=== PATIENT | female | born 1980 | race Caucasian/White ===

== ENCOUNTER → 2017-11-25 | Outpatient (CLI) | payer OTHER ==
[~2017-11-25] MED LIST: IOPAMIDOL (ISOVUE 370) 100 ML BTL IV ONE
== END ==
LOC: FIMAGING 13:02
PROVIDERS: ATTEND Obstetrics & Gynecology
PROC: 0UJD7ZZ Inspection of Uterus and Cervix, Via Natural or Artificial Opening (ICD-10-PCS; principal; 2017-11-25)
DX: N97.9 Female infertility, unspecified (principal)
CPT/HCPCS: Q9967

== ENCOUNTER → 2018-06-06 | Outpatient (CLI) | payer OTHER | LOC: FIMAGING 14:10 | PROVIDERS: ATTEND Obstetrics & Gynecology | DX: O09.522 Supervision of elderly multigravida, second trimester (principal); O99.280 Endocrine, nutritional and metabolic diseases complicating pregnancy, unspecified trimester; Z3A.19 19 weeks gestation of pregnancy ==

== ENCOUNTER 2018-10-25 21:19 | Inpatient (IN) | payer OTHER ==
[2018-10-25] MEDS ORDERED: LR 1,000 ML IV PRN (21:52)
[2018-10-25] MEDS ORDERED: MISOPROSTOL 200 MCG TAB PR PRN (21:52)
[2018-10-25] MEDS ORDERED: IBUPROFEN 600 MG TAB PO PRN (21:52)
[2018-10-25] MEDS ORDERED: EPSOM SALT 454 GM TP PRN (21:52)
[2018-10-25] MEDS ORDERED: OXYTOCIN/RINGERS LACTATE 1,000 ML IV PRN (21:52)
[2018-10-25] MEDS ORDERED: LIDOCAINE 1% 300 MG/30 ML SDV SC PRN (21:52)
[2018-10-25] MEDS ORDERED: OLIVE OIL 118 ML BTL MISC PRN (21:52)
[2018-10-25] MEDS ORDERED: CALCIUM CARBONATE 500 MG CHEWABLE TAB PO PRN (22:07)
[2018-10-25] MEDS ORDERED: ZOLPIDEM TARTRATE 5 MG TAB PO PRN (22:08)
[2018-10-25] MEDS ORDERED: LR 500 ML IV PRN (22:08)
[2018-10-25] MEDS ORDERED: ACETAMINOPHEN 500 MG TAB PO PRN (22:08)
[2018-10-25] MEDS ORDERED: OXYTOCIN/RINGERS LACTATE 500 ML IV SCH (22:30)
[2018-10-25] MEDS ORDERED: LIDOCAINE 1% 300 MG/30 ML SDV ONE (22:54)
[2018-10-25] MEDS ORDERED: OLIVE OIL 118 ML BTL ONE (22:54)
[2018-10-25] MEDS ORDERED: TERBUTALINE SULFATE 1 MG/ML VIAL ONE (22:55)
[2018-10-25] MEDS ORDERED: OXYTOCIN 10 UNIT/ML VIAL ONE (22:55)
[2018-10-25] MEDS ORDERED: AMMONIA AROMATIC 1 EACH AMP IH ONE (22:55)
[2018-10-25] MEDS ORDERED: MISOPROSTOL 200 MCG TAB ONE (22:55)
[2018-10-25] MEDS: MISOPROSTOL 25 MCG CAP PO SCH (23:00)
[2018-10-25 23:01] LABS: PLATELET COUNT 233 10^3/uL (150-400)
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
--- NOTE | 2018-10-26 03:44 | OBPROG ---
Labor Progress Note Assessment/Plan: Assessment: 37 y/o @ 40 1/7 weeks with PROM Plan: Called into hospital by RN re: prolonged decels Pt was given first dose buccal Cytotec around 2330; no ctx's noted on toco but prolonged decel noted at 0207 x 7 min duration with tsering down to 60 bpm with slow return to baseline. resuscitation was performed-pt on L side, IVFs wide open and oxygen applied No SVE done at this time There now appears to be ctx's every 2-3 min that were traced starting around 0220 Discussed holding off on second dose of Cytotec-to be given at 0240 Will cont to monitor strip closely, strip now reassuring with accels and mod variability If another prolonged decel noted, will likely proceed to OR for PCS since remote from delivery 10/26/18 03:37 Subjective/Intrapartum Course: 10/26/18 03:44 Pt sleeping at this time. Objective: 10/25/18 22:45 Patient ABO/Rh B POSITIVE 10/25/18 22:45 - Contraction Pattern Assessment Current Contraction Pattern: Irregular (q2-5 min) - FHR Assessment Thakkar FHR (bpm): 120 FHR Pattern Variability: Moderate FHR Category: 2 (intermittent mild variable decels noted; prolonged decel noted x 7 min with tsering to 60 bpm with slow return to baseline) - AP Antepartum Course: 10/26/18 03:46 AMA with negative NIPT; Hypothyroidism-stable on meds; HSV 1 with oral lesions only; varicella nonimmune; left complex adnexal mass likely dermoid that became smaller in third trimester, pt with no issues. Oxytocin Orders Assessment - Pre-Induction/Augmentation Assessment Gestational Age: 40 week(s) and 0 day(s) ICD10 Worksheet Patient Problems: Problems Problem Status Onset Premature rupture of membranes Acute - ICD10 Problem Qualifiers (1) Premature rupture of membranes
[2018-10-26] MEDS: LEVOTHYROXINE 50 MCG TAB PO SCH (09:39)
--- NOTE | 2018-10-26 12:14 | OBPROG ---
Labor Progress Note Assessment/Plan: Assessment: IUP at 40w1d with prolonged ROM x29 hrs GBS - afebrile, clear fluid Plan: IUPC placed for amnioinfusion - will then start pitocin, PEDRITO prn 10/26/18 12:10 Subjective/Intrapartum Course: 10/26/18 03:44 Pt sleeping at this time. 10/26/18 12:12 Pt doing well. off/on resting. minimal discomfort - aware of ctxns. scant vag bld this am o/w clear flluid. GFM. ready for stimulation.. Cx /2 IUPC placed without probs - to begin amnioinfusion then pit Objective: 10/25/18 22:45 Patient ABO/Rh B POSITIVE 10/25/18 22:45 - SVE Dilation (cm): 1 Effacement (%): 90 Station: -2 Membranes: SROM Amniotic Fluid Color: Clear - Contraction Pattern Assessment Current Contraction Pattern: Regular (variable ctxns q 2-4 min, some coupling, mild palpably), Irregular (q2-5 min) - FHR Assessment Thakkar FHR (bpm): 120 FHR Pattern Variability: Moderate FHR Category: 1 (currently cat I, has had occas variable decels - not always c/ w ctxns, currently with IUPC and MVUs 90-108) - Procedures Non-surgical Procedures: IUPC - AP Antepartum Course: 10/26/18 03:46 AMA with negative NIPT; Hypothyroidism-stable on meds; HSV 1 with oral lesions only; varicella nonimmune; left complex adnexal mass likely dermoid that became smaller in third trimester, pt with no issues. Oxytocin Orders Assessment - Pre-Induction/Augmentation Assessment Gestational Age: 40 week(s) and 0 day(s) ICD10 Worksheet Patient Problems: Problems Problem Status Onset Premature rupture of membranes Acute
--- NOTE | 2018-10-26 15:49 | OBPROG ---
Labor Progress Note Assessment/Plan: Assessment: IUP at 40w1d with prolonged ROM x29 hrs GBS - afebrile, clear fluid on pit with good intensity ctxns Plan: IUPC placed for amnioinfusion - on pitocin, PEDRITO prn 10/26/18 12:10 10/26/18 15:46 Subjective/Intrapartum Course: 10/26/18 03:44 Pt sleeping at this time. 10/26/18 12:12 Pt doing well. off/on resting. minimal discomfort - aware of ctxns. scant vag bld this am o/w clear flluid. GFM. ready for stimulation.. Cx /-2 IUPC placed without probs - to begin amnioinfusion then pit 10/26/18 15:47 Pt managing ctxn pain well. good strength ctxns by IUPC on 4 mu/min pit. some variables on 6 mu/min Objective: 10/25/18 22:45 Patient ABO/Rh B POSITIVE 10/25/18 22:45 - SVE Membranes: SROM Amniotic Fluid Color: Clear - Contraction Pattern Assessment Current Contraction Pattern: Regular (q 1-2 min on 4 mu/min pit, good MVUs), Irregular (q2-5 min) - FHR Assessment Thakkar FHR (bpm): 130 FHR Pattern Variability: Moderate FHR Category: 1 - Procedures Non-surgical Procedures: IUPC - AP Antepartum Course: 10/26/18 03:46 AMA with negative NIPT; Hypothyroidism-stable on meds; HSV 1 with oral lesions only; varicella nonimmune; left complex adnexal mass likely dermoid that became smaller in third trimester, pt with no issues. Oxytocin Orders Assessment - Pre-Induction/Augmentation Assessment Gestational Age: 40 week(s) and 0 day(s) ICD10 Worksheet Patient Problems: Problems Problem Status Onset Premature rupture of membranes Acute
[2018-10-26] MEDS ORDERED: fentaNYL 2MCG/ML/BUP 0.1% RTU 100 ML BAG EP ONE (19:52)
--- NOTE | 2018-10-26 19:56 | OBPROG ---
Labor Progress Note Assessment/Plan: Assessment: IUP at 40w1d with prolonged ROM x36 hrs GBS - afebrile, clear fluid on pit with good intensity ctxns - no cervical change hx of cryo Plan: IUPC placed for amnioinfusion - on pitocin, pt is requesting PEDRITO 10/26/18 12:10 10/26/18 15:46 10/26/18 19:45 Subjective/Intrapartum Course: 10/26/18 03:44 Pt sleeping at this time. 10/26/18 12:12 Pt doing well. off/on resting. minimal discomfort - aware of ctxns. scant vag bld this am o/w clear flluid. GFM. ready for stimulation.. Cx IUPC placed without probs - to begin amnioinfusion then pit 10/26/18 15:47 Pt managing ctxn pain well. good strength ctxns by IUPC on 4 mu/min pit. some variables on 6 mu/min 10/26/18 19:46 Pt doing ok - but sister reports she's hitting a wall - ctxns stronger per pt and she's getting fatigued. Pt requests PEDRITO. Last exam per RN was unchanged at . Pt had cryo in past Objective: 10/25/18 22:45 Patient ABO/Rh B POSITIVE 10/25/18 22:45 - SVE Membranes: SROM Amniotic Fluid Color: Clear - Contraction Pattern Assessment Current Contraction Pattern: Regular (q 1-2 min on 4 mu/min pit, good MVUs), Irregular (variable pattern q 2-4 min, adeq pattern with MVUs - pit betw 3-6 mu /min, some coupling) - FHR Assessment Thakkar FHR (bpm): 130 FHR Pattern Variability: Moderate FHR Category: 1 - Procedures Non-surgical Procedures: IUPC - AP Antepartum Course: 10/26/18 03:46 AMA with negative NIPT; Hypothyroidism-stable on meds; HSV 1 with oral lesions only; varicella nonimmune; left complex adnexal mass likely dermoid that became smaller in third trimester, pt with no issues. Oxytocin Orders Assessment - Pre-Induction/Augmentation Assessment Gestational Age: 40 week(s) and 0 day(s) ICD10 Worksheet Patient Problems: Problems Problem Status Onset Premature rupture of membranes Acute
[2018-10-26] MEDS ORDERED: ONDANSETRON 4 MG/2 ML VIAL IVP PRN (20:23)
[2018-10-26] MEDS ORDERED: NALOXONE HCL 0.4 MG/ML INJ IVP PRN (20:23)
--- NOTE | 2018-10-26 20:26 | PREANESOB ---
Obstetric Pre-Anesthesia Info - General Info Proposed Procedure: induction of labor following SROM NPO Start Time: 21:00 : 1 Para: 0 RONALDO: 10/25/18 Gestational Age: 40 week(s) and 0 day(s) - Info Status: Full Term Monitors: External FHR Pattern: Reassuring - Labor Status Cervical Dilation per last OB SVE: 1 Station per last OB SVE: -2 Amniotic Fluid Color: Clear Pitocin: In Use PIH: No Magnesium Sulfate in Use: No Labor Epidural: Proposed Anesthesia ROS: hypothyroidism no complications during no h/o bleeding disorder/blood thinner usage/low platelets Allergies/Adverse Reactions: Allergy/AdvReac Type Severity Reaction Status Date / Time No Known Allergies Allergy Unverified 10/25/18 21:42 Home Medications: Medication Instructions Recorded Levothyroxine [Synthroid 75 mcg 75 mcg PO DAILY06 10/25/18 (*)] Vit27&Calcium/Iron/FA 1 each PO DAILY 10/25/18 [ Rx 1 Tablet (RX)] Valacyclovir HCl [Valtrex] 1,000 mg PO TID 10/25/18 Visit Medications: Generic Name Dose Route Start Last Admin Trade Name Freq PRN Reason Stop Dose Admin Acetaminophen 1,000 mg 10/25/18 22:08 Tylenol PO 04/23/19 22:07 Q6HRS PRN Pain, Mild/Fever, Can Take PO Calcium Carbonate 500 mg 10/25/18 22:07 Tums PO 04/23/19 22:06 TID PRN Indigestion Lactated Ringer's 1,000 mls @ 0 mls/hr 10/25/18 21:52 Lr IV 10/26/18 21:51 PRN PRN SEE PROTOCOL CONDITIONS Protocol Per Protocol Oxytocin/Lactated Ringer's 1,000 mls @ 125 mls/hr 10/25/18 21:52 Pitocin 20 Units/Lr (Premix) IV PRN PRN Post bleeding Lactated Ringer's 500 mls @ 500 mls/hr 10/25/18 22:08 Lr IV 10/26/18 22:09 PRN PRN Maternal Hypotension Oxytocin/Lactated Ringer's 500 mls @ 0 mls/hr 10/25/18 22:30 Pitocin 30 Units/Lr (Premix) IV 04/23/19 22:29 CONT QUOC Protocol Per Protocol Ibuprofen 600 mg 10/25/18 21:52 Motrin PO ONCE PRN post , pain Levothyroxine Sodium 50 mcg 10/26/18 09:30 10/26/18 09:39 Synthroid PO 04/24/19 09:29 50 mcg DAILY AT 6AM QUOC Administration Lidocaine HCl 300 mg 10/25/18 21:52 Lidocaine Hcl 1% SC 04/23/19 21:51 ONCE PRN episiotomy Magnesium Sulfate 454 gm 10/25/18 21:52 Epsom Salt TP 04/23/19 21:51 Q1H PRN perineal discomfort Misoprostol 800 - 1,000 mcg 10/25/18 21:52 Cytotec IA ONCE PRN Vaginal Atony/Bleeding Misoprostol 50 mcg 10/25/18 22:00 10/25/18 23:00 Cytotec PO 04/23/19 21:59 50 mcg Q4H QUOC Administration [place]ick Oil 118 ml 10/25/18 21:52 Sweet Oil MISC 04/23/19 21:51 ONCE PRN perineal massage Zolpidem Tartrate 5 mg 10/25/18 22:08 10/25/18 23:03 Ambien PO 04/23/19 22:07 5 mg HS PRN Administration Sleep/Insomnia Discontinued Medications Generic Name Dose Route Start Last Admin Trade Name Clintq PRN Reason Stop Dose Admin Ammonia (Aromatic Spirit) Confirm 10/25/18 22:55 Ammonia Aromatic Administered 10/25/18 22:56 Dose 1 each IH .STK-MED ONE Fentanyl/Bupivacaine HCl Confirm 10/26/18 19:52 Fentanyl/Bupivacaine/Ns 2 Mcg/Ml 0.1% (Premix Administered 10/26/18 19:53 Dose 100 ml EP .STK-MED ONE Lidocaine HCl Confirm 10/25/18 22:54 Lidocaine Hcl 1% Administered 10/25/18 22:55 Dose 300 mg .ROUTE .STK-MED ONE Misoprostol Confirm 10/25/18 22:55 Cytotec Administered 10/25/18 22:56 Dose 1,000 mcg .ROUTE .STK-MED ONE [place] Oil Confirm 10/25/18 22:54 Sweet Oil Administered 10/25/18 22:55 Dose 118 ml .ROUTE .STK-MED ONE Oxytocin Confirm 10/25/18 22:55 Pitocin Administered 10/25/18 22:56 Dose 40 unit .ROUTE .STK-MED ONE Terbutaline Sulfate Confirm 10/25/18 22:55 Brethine Administered 10/25/18 22:56 Dose 1 mg .ROUTE .STK-MED ONE - Anesthesia History Response to Local Anesthetics: Normal Anesthesia & Operative History: No Prior Problems Family Anesthesia History: Negative - Vital Signs Latest Vital Signs (Nursing): See RN flowsheet in OB tracevue Height/Weight (Nursing): Height 170.18 cm Weight 92.079 kg - Focused Exam Neck exam: FROM Mallampati Score: Class 2 Mouth exam: normal dental/mouth exam Pulmonary: clear to auscultation Cardiovascular: bradycardia Labs: 10/25/18 22:45 Patient ABO/Rh B POSITIVE 10/25/18 22:45 - Plan Consent Signed and on Chart: Yes Urgent/Emergent Case: Karthik zhu completed preop but documented later for safe timely pt care (Epidural placement went smoothly with one pass required to reach epidural space.)
[2018-10-26] MEDS ORDERED: fentaNYL 2MCG/ML/BUP 0.1% RTU 100 ML EP SCH (20:30)
[2018-10-26] MEDS ORDERED: LR 500 ML IV SCH (20:30)
--- NOTE | 2018-10-26 22:31 | OBPROG ---
Labor Progress Note Assessment/Plan: Assessment: IUP at 40w1d with prolonged ROM x36 hrs --PT EXAMINED AT 21:42 GBS - afebrile, clear fluid on pit with good intensity ctxns -just got PEDRITO hx of cryo - exam still - broke through scar and now 4-5/100/-1 Plan: IUPC placed for amnioinfusion -increase bolus due to loss of fluid with PEDRITO, pit stopped due to variables/lates after PEDRITO 10/26/18 12:10 10/26/18 15:46 10/26/18 19:45 10/26/18 22:24 Subjective/Intrapartum Course: 10/26/18 03:44 Pt sleeping at this time. 10/26/18 12:12 Pt doing well. off/on resting. minimal discomfort - aware of ctxns. scant vag bld this am o/w clear flluid. GFM. ready for stimulation.. Cx /-2 IUPC placed without probs - to begin amnioinfusion then pit 10/26/18 15:47 Pt managing ctxn pain well. good strength ctxns by IUPC on 4 mu/min pit. some variables on 6 mu/min 10/26/18 19:46 Pt doing ok - but sister reports she's hitting a wall - ctxns stronger per pt and she's getting fatigued. Pt requests PEDRITO. Last exam per RN was unchanged at /-2. Pt had cryo in past 10/26/18 22:26 Pt examined at 21:42 - pt on hands/knees due to decels and pit stopped. baby recovered and back to [facility]. cx was but stretched through scar and now 4- 5/100/-1. Disc possibility that decels might lead to c/s and frustrating pattern with ctxns. Objective: 10/25/18 22:45 Patient ABO/Rh B POSITIVE 10/25/18 22:45 - SVE Dilation (cm): 4 (4-5) Effacement (%): 100 Station: -1 Membranes: SROM Amniotic Fluid Color: Clear - Contraction Pattern Assessment Current Contraction Pattern: Regular (q 2-3 but milder off pit - MVUs now around 100), Irregular (variable pattern q 2-4 min, adeq pattern with MVUs - pit betw 3-6 mu/min, some coupling) - FHR Assessment Thakkar FHR (bpm): 120 FHR Pattern Variability: Moderate FHR Category: 2 (variable decels and off/on late decels.) - Procedures Non-surgical Procedures: IUPC - AP Antepartum Course: 10/26/18 03:46 AMA with negative NIPT; Hypothyroidism-stable on meds; HSV 1 with oral lesions only; varicella nonimmune; left complex adnexal mass likely dermoid that became smaller in third trimester, pt with no issues. Oxytocin Orders Assessment - Pre-Induction/Augmentation Assessment Gestational Age: 40 week(s) and 0 day(s) ICD10 Worksheet Patient Problems: Problems Problem Status Onset Premature rupture of membranes Acute
--- NOTE | 2018-10-26 23:55 | OBPROG ---
Labor Progress Note Assessment/Plan: Assessment: IUP at 40w1d with prolonged ROM x 41 hrs GBS - afebrile, clear fluid on pit with inadeq ctxns - building up pit hx of cryo - not checked now with inadeq ctxns Plan: IUPC placed for amnioinfusion, pit restarted as cat I tracing 10/26/18 12:10 10/26/18 15:46 10/26/18 19:45 10/26/18 22:24 10/26/18 23:50 Subjective/Intrapartum Course: 10/26/18 03:44 Pt sleeping at this time. 10/26/18 12:12 Pt doing well. off/on resting. minimal discomfort - aware of ctxns. scant vag bld this am o/w clear flluid. GFM. ready for stimulation.. Cx /-2 IUPC placed without probs - to begin amnioinfusion then pit 10/26/18 15:47 Pt managing ctxn pain well. good strength ctxns by IUPC on 4 mu/min pit. some variables on 6 mu/min 10/26/18 19:46 Pt doing ok - but sister reports she's hitting a wall - ctxns stronger per pt and she's getting fatigued. Pt requests PEDRITO. Last exam per RN was unchanged at /-2. Pt had cryo in past 10/26/18 22:26 Pt examined at 21:42 - pt on hands/knees due to decels and pit stopped. baby recovered and back to [facility]. cx was 1/100 but stretched through scar and now 4- 5/100/-1. Disc possibility that decels might lead to c/s and frustrating pattern with ctxns. 10/26/18 23:53 pt has been sleeping soundly. pt has been on side with great tolerance by baby - cat I tracing - ctxns inadeq with MVUs around 100. Just restarted pit to build ctxn freq - increasing slowly Objective: 10/25/18 22:45 Patient ABO/Rh B POSITIVE 10/25/18 22:45 - SVE Membranes: SROM Amniotic Fluid Color: Clear - Contraction Pattern Assessment Current Contraction Pattern: Regular (q 4-5 min now on .5mu/min pit), Irregular (variable pattern q 2-4 min, adeq pattern with MVUs - pit betw 3-6 mu/min, some coupling) - FHR Assessment Thakkar FHR (bpm): 120 FHR Pattern Variability: Moderate FHR Category: 1 - Procedures Non-surgical Procedures: IUPC - AP Antepartum Course: 10/26/18 03:46 AMA with negative NIPT; Hypothyroidism-stable on meds; HSV 1 with oral lesions only; varicella nonimmune; left complex adnexal mass likely dermoid that became smaller in third trimester, pt with no issues. Oxytocin Orders Assessment - Pre-Induction/Augmentation Assessment Gestational Age: 40 week(s) and 0 day(s) ICD10 Worksheet Patient Problems: Problems Problem Status Onset Premature rupture of membranes Acute
--- NOTE | 2018-10-27 01:13 | OBPROG ---
Labor Progress Note Assessment/Plan: Assessment: IUP at 40w1d with prolonged ROM x 42 hrs -- episode of shaking and pt anxious GBS - afebrile, clear fluid on pit with inadeq ctxns - building up pit hx of cryo change to 8cm Plan: IUPC placed for amnioinfusion, occas variables 10/26/18 12:10 10/26/18 15:46 10/26/18 19:45 10/26/18 22:24 10/26/18 23:50 10/27/18 01:09 Subjective/Intrapartum Course: 10/26/18 03:44 Pt sleeping at this time. 10/26/18 12:12 Pt doing well. off/on resting. minimal discomfort - aware of ctxns. scant vag bld this am o/w clear flluid. GFM. ready for stimulation.. Cx /-2 IUPC placed without probs - to begin amnioinfusion then pit 10/26/18 15:47 Pt managing ctxn pain well. good strength ctxns by IUPC on 4 mu/min pit. some variables on 6 mu/min 10/26/18 19:46 Pt doing ok - but sister reports she's hitting a wall - ctxns stronger per pt and she's getting fatigued. Pt requests PEDRITO. Last exam per RN was unchanged at /-2. Pt had cryo in past 10/26/18 22:26 Pt examined at 21:42 - pt on hands/knees due to decels and pit stopped. baby recovered and back to [facility]. cx was 1/100 but stretched through scar and now 4- 5/100/-1. Disc possibility that decels might lead to c/s and frustrating pattern with ctxns. 10/26/18 23:53 pt has been sleeping soundly. pt has been on side with great tolerance by baby - cat I tracing - ctxns inadeq with MVUs around 100. Just restarted pit to build ctxn freq - increasing slowly 10/27/18 01:11 pt awoke and called out with anxiety/shaking episode - improved after pushing button. exam shows 8/0 station - during exam with pt lying more on side, baby had several lates, cont [facility]. on 1.5 mu/min pit - reduced to 1 mu/min Objective: 10/25/18 22:45 Patient ABO/Rh B POSITIVE 10/25/18 22:45 - SVE Dilation (cm): 8 Effacement (%): 100 Station: 0 Membranes: SROM Amniotic Fluid Color: Clear - Contraction Pattern Assessment Current Contraction Pattern: Regular (q 4-5 min now on .5mu/min pit), Irregular (q3-4 min on 1 mu/min pit, MVUs up to 120) - FHR Assessment Thakkar FHR (bpm): 120 FHR Pattern Variability: Moderate FHR Category: 2 (recent run of couple late decels - not persisting) - Procedures Non-surgical Procedures: IUPC - AP Antepartum Course: 10/26/18 03:46 AMA with negative NIPT; Hypothyroidism-stable on meds; HSV 1 with oral lesions only; varicella nonimmune; left complex adnexal mass likely dermoid that became smaller in third trimester, pt with no issues. Oxytocin Orders Assessment - Pre-Induction/Augmentation Assessment Gestational Age: 40 week(s) and 0 day(s) ICD10 Worksheet Patient Problems: Problems Problem Status Onset Premature rupture of membranes Acute
--- NOTE | 2018-10-27 04:00 | OBPROG ---
Labor Progress Note Assessment/Plan: Assessment: IUP at 40w1d with prolonged ROM x 44 hrs -- feeling more rectal pressure GBS - afebrile, clear fluid pit now off again due to tachysystole complete dilation Plan: complete and pushing q o ctxn 10/26/18 12:10 10/26/18 15:46 10/26/18 19:45 10/26/18 22:24 10/26/18 23:50 10/27/18 01:09 10/27/18 03:55 Subjective/Intrapartum Course: 10/26/18 03:44 Pt sleeping at this time. 10/26/18 12:12 Pt doing well. off/on resting. minimal discomfort - aware of ctxns. scant vag bld this am o/w clear flluid. GFM. ready for stimulation.. Cx /-2 IUPC placed without probs - to begin amnioinfusion then pit 10/26/18 15:47 Pt managing ctxn pain well. good strength ctxns by IUPC on 4 mu/min pit. some variables on 6 mu/min 10/26/18 19:46 Pt doing ok - but sister reports she's hitting a wall - ctxns stronger per pt and she's getting fatigued. Pt requests PEDRITO. Last exam per RN was unchanged at /-2. Pt had cryo in past 10/26/18 22:26 Pt examined at 21:42 - pt on hands/knees due to decels and pit stopped. baby recovered and back to [facility]. cx was 1/100 but stretched through scar and now 4- 5/100/-1. Disc possibility that decels might lead to c/s and frustrating pattern with ctxns. 10/26/18 23:53 pt has been sleeping soundly. pt has been on side with great tolerance by baby - cat I tracing - ctxns inadeq with MVUs around 100. Just restarted pit to build ctxn freq - increasing slowly 10/27/18 01:11 pt awoke and called out with anxiety/shaking episode - improved after pushing button. exam shows station - during exam with pt lying more on side, baby had several lates, cont GBTBV. on 1.5 mu/min pit - reduced to 1 mu/min 10/27/18 03:57 pt noticing more rectal pressure off/on. occas variables/lates - nonrepetitive....changing position around 3am brought decel for approx 2 min to 80s. complete dilation noted at 3:32, started pushing but variables with slow recovery --cont mod BTBV. head at +2station Objective: 10/25/18 22:45 Patient ABO/Rh B POSITIVE 10/25/18 22:45 - SVE Dilation (cm): 10 Effacement (%): 100 Station: +2 Membranes: SROM Amniotic Fluid Color: Clear Dilation Complete Date: 10/27/18 Dilation Complete Time: 03:32 - Contraction Pattern Assessment Current Contraction Pattern: Regular (q 3 min, now off pit) - FHR Assessment Thakkar FHR (bpm): 120 FHR Pattern Variability: Moderate FHR Category: 2 - Procedures Non-surgical Procedures: IUPC - AP Antepartum Course: 10/26/18 03:46 AMA with negative NIPT; Hypothyroidism-stable on meds; HSV 1 with oral lesions only; varicella nonimmune; left complex adnexal mass likely dermoid that became smaller in third trimester, pt with no issues. Oxytocin Orders Assessment - Pre-Induction/Augmentation Assessment Gestational Age: 40 week(s) and 0 day(s) ICD10 Worksheet Patient Problems: Problems Problem Status Onset Premature rupture of membranes Acute
[2018-10-27] MEDS ORDERED: ACETAMINOPHEN 325 MG TAB PO PRN (04:30)
--- NOTE | 2018-10-27 04:37 | OBDEL ---
Info Type: Vaginal Presentation at Delivery: Vertex L&D Analgesia/Anesthesia Type: Epidural GBS+: No Intrapartum Medications: Generic Name Dose Route Start Last Admin Trade Name Hannah PRN Reason Stop Dose Admin Ephedrine Sulfate 10 mg 10/26/18 20:23 10/27/18 02:44 Ephedrine Sulfate IV 04/24/19 20:22 10 mg .Q2M PRN Administration Hypotension Levothyroxine Sodium 50 mcg 10/26/18 09:30 10/26/18 09:39 Synthroid PO 04/24/19 09:29 50 mcg DAILY AT 6AM QUOC Administration Misoprostol 50 mcg 10/25/18 22:00 10/25/18 23:00 Cytotec PO 04/23/19 21:59 50 mcg Q4H QUOC Administration Zolpidem Tartrate 5 mg 10/25/18 22:08 10/25/18 23:03 Ambien PO 04/23/19 22:07 5 mg HS PRN Administration Sleep/Insomnia - Hospital Course Intrapartum: 10/26/18 03:44 Pt sleeping at this time. 10/26/18 12:12 Pt doing well. off/on resting. minimal discomfort - aware of ctxns. scant vag bld this am o/w clear flluid. GFM. ready for stimulation.. Cx /-2 IUPC placed without probs - to begin amnioinfusion then pit 10/26/18 15:47 Pt managing ctxn pain well. good strength ctxns by IUPC on 4 mu/min pit. some variables on 6 mu/min 10/26/18 19:46 Pt doing ok - but sister reports she's hitting a wall - ctxns stronger per pt and she's getting fatigued. Pt requests PEDRITO. Last exam per RN was unchanged at /-2. Pt had cryo in past 10/26/18 22:26 Pt examined at 21:42 - pt on hands/knees due to decels and pit stopped. baby recovered and back to [facility]. cx was 1/100 but stretched through scar and now 4- 5/100/-1. Disc possibility that decels might lead to c/s and frustrating pattern with ctxns. 10/26/18 23:53 pt has been sleeping soundly. pt has been on side with great tolerance by baby - cat I tracing - ctxns inadeq with MVUs around 100. Just restarted pit to build ctxn freq - increasing slowly 10/27/18 01:11 pt awoke and called out with anxiety/shaking episode - improved after pushing button. exam shows station - during exam with pt lying more on side, baby had several lates, cont GBTBV. on 1.5 mu/min pit - reduced to 1 mu/min 10/27/18 03:57 pt noticing more rectal pressure off/on. occas variables/lates - nonrepetitive....changing position around 3am brought decel for approx 2 min to 80s. complete dilation noted at 3:32, started pushing but variables with slow recovery --cont mod BTBV. head at +2station Indications for Delivery: SROM Vaginal Delivery - Delivery Provider Delivery Physician/CNM: Yamileth Rodriguez - Labor and Delivery Onset of Contractions Date: 10/26/18 Onset of Contractions Time: 14:45 Onset of Contractions Type: Induced Rupture of Membranes Date: 10/25/18 Rupture of Membranes Time: 07:00 Rupture of Membranes Type: Spontaneous Amniotic Fluid Color: Clear Dilation Complete Date: 10/27/18 Dilation Complete Time: 03:32 Placenta Delivery Date: 10/27/18 Placenta Delivery Time: 04:15 Total Hours of Labor: 13 Non-surgical Procedures: IUPC Laceration: 1st Degree (left periurethral) Vaginal Sponge Count Correct: Yes Vaginal Needle Count Correct: Yes Vaginal Sweep Performed: Yes EBL: 300 Delivery Events: None Delivery Comment: variables with pushing, slow return to baseline - Medications Labor Augmentation/Induction Methods Used: Pitocin Labor Augmentation/Induction Indication: Other (Specify) (prolonged ROM) Data RONALDO: 10/25/18 Gestational Age: 40 week(s) and 2 day(s) Thakkar Delivery Date: 10/27/18 Delivery Time: 04:07 Sex of Infant: Female (Lebron Castro) Score (1 Min): 7 Score (5 Min): 9 ICD10 Worksheet Patient Problems: Problems Problem Status Onset Premature rupture of membranes Acute (spontaneous vaginal delivery) Acute
[2018-10-27] MEDS: DOCUSATE SODIUM 100 MG CAP PO PRN (11:00)
[2018-10-27] MEDS: IBUPROFEN 600 MG TAB PO PRN ×2 (11:00→18:00)
[2018-10-27] MEDS: LEVOTHYROXINE 50 MCG TAB PO SCH (12:17)
--- NOTE | 2018-10-27 13:20 | POSTANESTH ---
Post Anesthetic Evaluation Cardiovascular Status: Normal, Stable Respiratory Status: Normal, Stable Level of Consciousness/Mental Status: Can Participate in Eval, Alert and Oriented Pain Control: Adequate, Prn Tx Ordered Nausea/Vomiting Control: Adequate, Prn Tx Ordered Complications Possibly Related to Anesthesia: None Noted (Placenta Delivery Time : 04:15 - Epidural End Time)
[2018-10-27] MEDS: MISOPROSTOL 25 MCG CAP PO SCH ×3 (14:41→15:49)
[2018-10-28] MEDS: LEVOTHYROXINE 50 MCG TAB PO SCH (06:37)
[2018-10-28] MEDS: IBUPROFEN 600 MG TAB PO PRN ×3 (10:11→21:56)
--- NOTE | 2018-10-28 11:08 | OBPP ---
Progress Note Assessment/Plan: Assessment: 37 y/o PPD #1 s/p augmentation of labor after prolonged SROM doing well. Plan: support and routine PPC. D/c home tomorrow. 10/28/18 11:08 Subjective/ Course: 10/28/18 11:05 Pt is doing well today. She has min cramping and perineal pain controlled with Ibuprofen. Breast feeding is going well and her nipples are not too sore. She is ambulating and voiding well and has min lochia. Baby is doing well. Objective: 10/28/18 04:40 Patient ABO/Rh B POSITIVE 10/25/18 22:45 Temp Pulse Resp BP Pulse Ox 36.2 C 67 16 97/67 L 95 10/28/18 09:09 10/28/18 09:09 10/28/18 09:09 10/28/18 09:09 10/28/18 09:09 Uterine Position/Fundal Height: Umbilicus -2 Uterine Tone: Firm Physical Exam - Physical Exam General Appearance: alert, no apparent distress Neck: non-tender, full range of motion, supple Respiratory: chest non-tender, lungs clear, normal breath sounds Cardiac/Chest: regular rate, rhythm Extremities: swelling (no), Cherrie's sign (neg)
[2018-10-28] MEDS: FERRO-SEQUELS 65 MG TAB.ER PO SCH (16:00)
[2018-10-28] MEDS: DOCUSATE SODIUM 100 MG CAP PO PRN (21:56)
[2018-10-29] MEDS: LEVOTHYROXINE 50 MCG TAB PO SCH (05:58)
[2018-10-29] MEDS: IBUPROFEN 600 MG TAB PO PRN ×2 (05:58→12:51)
[2018-10-29 07:31] VITALS: BP 112/69
[2018-10-29] MEDS: FERRO-SEQUELS 65 MG TAB.ER PO SCH (08:39)
[2018-10-29] MEDS: DOCUSATE SODIUM 100 MG CAP PO PRN (08:39)
--- NOTE | 2018-10-29 11:55 | OBPP ---
Progress Note Assessment/Plan: Assessment: 37 G2 now P1, PPD#2 s/p , doing well. Plan: Dc home, std pp vag deliv instructions reviewed, including ssx pp depression. See Dc summary. Rosio Philippe MD, [facility]OG [facility] 10/29/18 11:52 Subjective/ Course: 10/28/18 11:05 Pt is doing well today. She has min cramping and perineal pain controlled with Ibuprofen. Breast feeding is going well and her nipples are not too sore. She is ambulating and voiding well and has min lochia. Baby is doing well. 10/29/18 11:53 Pt doing well. Ambulating, voiding, rafita reg diet without difficulty. Min lochia. going well. Objective: 10/28/18 04:40 Patient ABO/Rh B POSITIVE 10/25/18 22:45 Temp Pulse Resp BP Pulse Ox 36.6 C 61 16 112/69 95 10/29/18 07:30 10/29/18 07:30 10/29/18 07:30 10/29/18 07:30 10/29/18 07:30 gen - pleasant, NAD CV - RRR chest - CTAB abd - soft, + BS, fundus firm at u-2 ext - calves NT, 1+ BLE edema Uterine Position/Fundal Height: Umbilicus -2 Uterine Tone: Firm
--- NOTE | 2018-10-29 11:59 | OBGCSDC ---
General Delivery Information - General Info : 1 Para: 1 Abortions: 0 Type: Vaginal L&D Analgesia/Anesthesia Type: Epidural Admission Date: 10/25/18 Labs: Patient ABO/Rh B POSITIVE 10/25/18 22:45 Hct 34.2 % (38.0-47.0) L 10/28/18 04:40 - Hospital Course Antepartum: 10/26/18 03:46 AMA with negative NIPT; Hypothyroidism-stable on meds; HSV 1 with oral lesions only; varicella nonimmune; left complex adnexal mass likely dermoid that became smaller in third trimester, pt with no issues. Intrapartum: 10/26/18 03:44 Pt sleeping at this time. 10/26/18 12:12 Pt doing well. off/on resting. minimal discomfort - aware of ctxns. scant vag bld this am o/w clear flluid. GFM. ready for stimulation.. Cx /-2 IUPC placed without probs - to begin amnioinfusion then pit 10/26/18 15:47 Pt managing ctxn pain well. good strength ctxns by IUPC on 4 mu/min pit. some variables on 6 mu/min 10/26/18 19:46 Pt doing ok - but sister reports she's hitting a wall - ctxns stronger per pt and she's getting fatigued. Pt requests PEDRITO. Last exam per RN was unchanged at /-2. Pt had cryo in past 10/26/18 22:26 Pt examined at 21:42 - pt on hands/knees due to decels and pit stopped. baby recovered and back to [facility]. cx was 1/100 but stretched through scar and now 4- 5/100/-1. Disc possibility that decels might lead to c/s and frustrating pattern with ctxns. 10/26/18 23:53 pt has been sleeping soundly. pt has been on side with great tolerance by baby - cat I tracing - ctxns inadeq with MVUs around 100. Just restarted pit to build ctxn freq - increasing slowly 10/27/18 01:11 pt awoke and called out with anxiety/shaking episode - improved after pushing button. exam shows station - during exam with pt lying more on side, baby had several lates, cont GBTBV. on 1.5 mu/min pit - reduced to 1 mu/min 10/27/18 03:57 pt noticing more rectal pressure off/on. occas variables/lates - nonrepetitive....changing position around 3am brought decel for approx 2 min to 80s. complete dilation noted at 3:32, started pushing but variables with slow recovery --cont mod BTBV. head at +2station : 10/28/18 11:05 Pt is doing well today. She has min cramping and perineal pain controlled with Ibuprofen. Breast feeding is going well and her nipples are not too sore. She is ambulating and voiding well and has min lochia. Baby is doing well. 10/29/18 11:53 Pt doing well. Ambulating, voiding, rafita reg diet without difficulty. Min lochia. going well. Vaginal - Delivery Provider Delivery Physician/CNM: Yamileth Rodriguez - Diagnosis Labor: Induced Rupture of Membranes Type: Spontaneous Amniotic Fluid Color: Clear Laceration: 1st Degree (left periurethral) Delivery Events: None - Procedures Non-surgical Procedures: IUPC - Delivery Non-surgical Procedures: IUPC EBL: 300 [place] Data RONALDO: 10/25/18 Gestational Age: 40 week(s) and 4 day(s) Thakkar Delivery Date: 10/27/18 Delivery Time: 04:07 Sex of : Female [place] Weight (gm): 2608.156 g Score (1 Min): 7 Score (5 Min): 9 Discharge Information - Discharge Information Condition: Good Instruction/Follow Up: See Instruction Sheet, Two Weeks (2-3 weeks - [facility]), Six Weeks (with physician at [facility])
== END 2018-10-29 16:15 | disposition home or self-care (01) | DRG 807 ==
LOC: FLD 21:19 → FOB 10-27 06:48
PROVIDERS: ADMIT Obstetrics & Gynecology; ATTEND Obstetrics & Gynecology
DX: O42.12 Full-term premature rupture of membranes, onset of labor more than 24 hours following rupture (principal); O70.0 First degree perineal laceration during delivery; O76 Abnormality in fetal heart rate and rhythm complicating labor and delivery; O75.81 Maternal exhaustion complicating labor and delivery; O99.284 Endocrine, nutritional and metabolic diseases complicating childbirth; E03.9 Hypothyroidism, unspecified; O34.83 Maternal care for other abnormalities of pelvic organs, third trimester; Z3A.40 40 weeks gestation of pregnancy; Z37.0 Single live birth
CPT/HCPCS: J2590; J3105